=== PATIENT | male | born 1995 ===

== ENCOUNTER 2021-12-02 07:23 | Outpatient (CLI) | payer BC | END 2021-12-02 07:24 | disposition home or self-care (01) | LOC: ULT 07:23 | DX: I10 Essential (primary) hypertension (principal); E80.6 Other disorders of bilirubin metabolism; K76.0 Fatty (change of) liver, not elsewhere classified; R93.2 Abnormal findings on diagnostic imaging of liver and biliary tract | CPT/HCPCS: 76705; 76770 ==